=== PATIENT | male | born 1945 | race Caucasian/White ===

== ENCOUNTER 2020-03-21 14:48 | Inpatient (IN) ==
[2020-03-21] MEDS ORDERED: *HR* OxyCODONE Immed Rel 5 MG TABLET PO PRN ×2 (15:45→17:01)
[2020-03-21] MEDS: carvediloL 6.25 MG TABLET PO SCH (16:54)
[2020-03-21] MEDS: DilTIAZem CD (24hr) 120 MG CAP.ER.24H PO SCH (16:54)
[2020-03-21] MEDS ORDERED: *HR* OxyCODONE/APAP 5/325 TABLET PO PRN (17:00)
[2020-03-21] MEDS ORDERED: Lactulose Oral Soln 20 GM/30 ML UDC PO PRN (17:01)
[2020-03-21] MEDS: polyethylene glycoL 3350 17 GM POWD.PACK PO SCH (17:12)
[2020-03-21] MEDS ORDERED: NON-FORMULARY MEDICATION 1 EACH EACH (Garlic 1,000 MG) PO SCH (18:00)
[2020-03-21] MEDS ORDERED: NON-FORMULARY MEDICATION 1 EACH EACH (Omega-3/Dha/Epa/Fish Oil [Cvs Fish Oil 1,000 Mg Soft PO SCH (18:00)
[2020-03-21] MEDS: Sennosides/Docusate Sodium TABLET PO SCH (19:51)
[2020-03-21] MEDS ORDERED: GLUCOSAMINE HCL 1500 MG PO SCH (21:00)
[2020-03-22 05:38] LABS: Basophils % 0.2 %; Eosinophils # 0.1 K/mcL (0.0-0.6); Eosinophils % 0.5 %; Hematocrit 25.5 % (37.5-50.1); Hemoglobin 8.5 g/dL (12.9-16.9); Immature Granulocytes % 3.3 % (0-4); Lymphocytes # 1.1 K/mcL (0.6-4.6); Lymphocytes % 7.8 %; Mean Corpuscular HGB Conc 33.3 g/dL (31.6-35.5); Mean Platelet Volume 11.1 fL (9.4-12.4); Monocytes # 3.8 K/mcL (0.0-1.3); Monocytes % 27.4 %; Neutrophils # 8.4 K/mcL (1.6-8.9); Platelet Count 119 K/mcL (140-400); Red Cell Distribution Width 12.7 % (11.5-14.5); Segmented Neutrophils % 60.8 %; White Blood Count 13.8 K/mcL (4.3-11.1)
[2020-03-22 05:54] LABS: BUN/Creatinine Ratio 27 (6-26); Blood Urea Nitrogen 21 mg/dL (8-23); Calcium 8.2 mg/dL (8.6-10.3); Carbon Dioxide 27 mEq/L (23-29); Chloride 99 mEq/L (98-107); Glucose 136 mg/dL (70-105); Osmolality,Calculated 279 (280-300); Potassium 4.6 mEq/L (3.5-5.1); Sodium 132 mEq/L (136-145); eGFR For African Americans > 60 (> 60); eGFR For Non-African Americans > 60 (> 60)
[2020-03-22] MEDS: *HR* Enoxaparin 40 MG/0.4 ML SYRINGE SQ SCH (06:09)
[2020-03-22 06:17] LABS: Platelet Estimate Decreased (Normal)
[2020-03-22 06:18] LABS: Macrocytosis Present (Not Present); Reactive Lymphocytes Present (Not Present)
[2020-03-22] MEDS: polyethylene glycoL 3350 17 GM POWD.PACK PO SCH (07:59)
[2020-03-22] MEDS: Cyanocobalamin (B-12) 1,000 MCG TABLET PO SCH (07:59)
[2020-03-22] MEDS: lisinopriL 20 MG TABLET PO SCH (07:59)
[2020-03-22] MEDS: carvediloL 6.25 MG TABLET PO SCH ×2 (07:59→17:11)
[2020-03-22] MEDS: Loratadine 10 MG TABLET PO SCH (07:59)
[2020-03-22] MEDS: allopurinoL 300 MG TABLET PO SCH (07:59)
[2020-03-22] MEDS: Sennosides/Docusate Sodium TABLET PO SCH ×2 (07:59→20:20)
[2020-03-22] MEDS ORDERED: Aspirin 325 MG TABLET PO SCH (09:00)
[2020-03-22] MEDS: *HR* OxyCODONE Immed Rel 5 MG TABLET PO PRN ×2 (17:10→20:20)
[2020-03-22] MEDS: DilTIAZem CD (24hr) 120 MG CAP.ER.24H PO SCH (17:11)
[2020-03-23] MEDS: *HR* OxyCODONE/APAP 7.5/325 TABLET PO PRN ×3 (02:29→22:45)
[2020-03-23] MEDS: *HR* Enoxaparin 40 MG/0.4 ML SYRINGE SQ SCH (05:16)
[2020-03-23 05:19] LABS: Bilirubin,Urine Negative (Negative); Blood,Urine Trace-intact (Negative); Clarity,Urine Clear (Clear); Color,Urine Yellow (Yellow); Glucose,Urine (UA) Normal (Normal); Ketones,Urine Negative (Negative); Leukocyte Esterase,Urine Negative (Negative); Nitrite,Urine Negative (Negative); PH,Urine 5.5 pH Units (5.0-8.0); Protein,Urine Negative (Neg-Trace); Specific Gravity,Urine 1.025 (1.010-1.025); Urobilinogen,Urine Normal (Normal)
[2020-03-23 05:23] LABS: Bacteria,Urine None Seen per hpf (None-Few); RBC,Urine 0-3 per hpf (0-3); Squamous Epithelial Cell,Urine Few per lpf (None-Few); Transitional Epi Cells,Urine Few per hpf (None-Few); WBC,Urine 0-3 per hpf (0-3)
[2020-03-23 06:24] LABS: Basophils % 0.2 %; Eosinophils # 0.1 K/mcL (0.0-0.6); Eosinophils % 0.6 %; Hematocrit 25.2 % (37.5-50.1); Hemoglobin 8.4 g/dL (12.9-16.9); Immature Granulocytes % 4.6 % (0-4); Lymphocytes # 1.1 K/mcL (0.6-4.6); Lymphocytes % 7.9 %; Mean Corpuscular HGB Conc 33.3 g/dL (31.6-35.5); Mean Corpuscular Hemoglobin 34.1 pg (28.0-33.3); Mean Corpuscular Volume 102.4 fL (83.0-100.0); Mean Platelet Volume 10.7 fL (9.4-12.4); Monocytes # 3.7 K/mcL (0.0-1.3); Neutrophils # 8.2 K/mcL (1.6-8.9); Platelet Count 140 K/mcL (140-400); Red Blood Count 2.46 M/mcL (4.19-5.50); Red Cell Distribution Width 12.8 % (11.5-14.5); Segmented Neutrophils % 59.7 %; White Blood Count 13.7 K/mcL (4.3-11.1)
[2020-03-23 06:36] LABS: Platelet Estimate Normal (Normal)
[2020-03-23 06:37] LABS: Macrocytosis Present (Not Present); Polychromasia 1+ (Not Present)
[2020-03-23 06:38] LABS: Reactive Lymphocytes Present (Not Present)
[2020-03-23 07:17] LABS: BUN/Creatinine Ratio 35 (6-26); Blood Urea Nitrogen 34 mg/dL (8-23); Calcium 8.2 mg/dL (8.6-10.3); Carbon Dioxide 26 mEq/L (23-29); Chloride 99 mEq/L (98-107); Glucose 149 mg/dL (70-105); Osmolality,Calculated 284 (280-300); Potassium 4.3 mEq/L (3.5-5.1); Sodium 132 mEq/L (136-145); eGFR For African Americans > 60 (> 60); eGFR For Non-African Americans > 60 (> 60)
[2020-03-23] MEDS: Loratadine 10 MG TABLET PO SCH (08:29)
[2020-03-23] MEDS: lisinopriL 20 MG TABLET PO SCH (08:29)
[2020-03-23] MEDS: carvediloL 6.25 MG TABLET PO SCH ×2 (08:30→17:42)
[2020-03-23] MEDS: Aspirin 81 MG TAB.CHEW PO SCH (08:30)
[2020-03-23] MEDS: allopurinoL 300 MG TABLET PO SCH (08:30)
[2020-03-23] MEDS: Sennosides/Docusate Sodium TABLET PO SCH ×2 (08:30→22:45)
[2020-03-23] MEDS: polyethylene glycoL 3350 17 GM POWD.PACK PO SCH (08:30)
[2020-03-23] MEDS: Cyanocobalamin (B-12) 1,000 MCG TABLET PO SCH (08:30)
[2020-03-23] MEDS: DilTIAZem CD (24hr) 120 MG CAP.ER.24H PO SCH (17:42)
[2020-03-23 19:19] LABS: Estimated Average Glucose 114 mg/dl
[2020-03-24] MEDS: *HR* Enoxaparin 40 MG/0.4 ML SYRINGE SQ SCH (06:24)
[2020-03-24] MEDS: Sennosides/Docusate Sodium TABLET PO SCH ×2 (08:14→22:32)
[2020-03-24] MEDS: carvediloL 6.25 MG TABLET PO SCH ×2 (08:14→17:07)
[2020-03-24] MEDS: Cyanocobalamin (B-12) 1,000 MCG TABLET PO SCH (08:14)
[2020-03-24] MEDS: Aspirin 81 MG TAB.CHEW PO SCH (08:14)
[2020-03-24] MEDS: allopurinoL 300 MG TABLET PO SCH (08:14)
[2020-03-24] MEDS: Loratadine 10 MG TABLET PO SCH (08:14)
[2020-03-24] MEDS: polyethylene glycoL 3350 17 GM POWD.PACK PO SCH (08:14)
[2020-03-24] MEDS: lisinopriL 20 MG TABLET PO SCH (08:14)
[2020-03-24] MEDS: DilTIAZem CD (24hr) 120 MG CAP.ER.24H PO SCH ×2 (17:07→18:12)
[2020-03-24] MEDS: *HR* OxyCODONE/APAP 7.5/325 TABLET PO PRN (22:32)
[2020-03-25] MEDS: *HR* Enoxaparin 40 MG/0.4 ML SYRINGE SQ SCH (05:17)
[2020-03-25 06:22] LABS: Basophils # 0.1 K/mcL (0.0-0.2); Basophils % 0.4 %; Eosinophils # 0.1 K/mcL (0.0-0.6); Eosinophils % 0.8 %; Hematocrit 24.1 % (37.5-50.1); Hemoglobin 7.8 g/dL (12.9-16.9); Immature Granulocytes % 6.3 % (0-4); Lymphocytes % 9.3 %; Mean Corpuscular HGB Conc 32.4 g/dL (31.6-35.5); Mean Corpuscular Hemoglobin 33.3 pg (28.0-33.3); Mean Platelet Volume 11.2 fL (9.4-12.4); Monocytes # 2.9 K/mcL (0.0-1.3); Monocytes % 23.3 %; Neutrophils # 7.4 K/mcL (1.6-8.9); Platelet Count 216 K/mcL (140-400); Red Blood Count 2.34 M/mcL (4.19-5.50); Red Cell Distribution Width 12.7 % (11.5-14.5); Segmented Neutrophils % 59.9 %; White Blood Count 12.3 K/mcL (4.3-11.1)
[2020-03-25 06:34] LABS: Lymphocytes # 1.1 K/mcL (0.6-4.6)
[2020-03-25] MEDS: Loratadine 10 MG TABLET PO SCH (07:51)
[2020-03-25] MEDS: carvediloL 6.25 MG TABLET PO SCH ×2 (07:51→16:08)
[2020-03-25] MEDS: Aspirin 81 MG TAB.CHEW PO SCH (07:51)
[2020-03-25] MEDS: allopurinoL 300 MG TABLET PO SCH (07:51)
[2020-03-25] MEDS: polyethylene glycoL 3350 17 GM POWD.PACK PO SCH (07:51)
[2020-03-25] MEDS: Cyanocobalamin (B-12) 1,000 MCG TABLET PO SCH (07:51)
[2020-03-25] MEDS: Sennosides/Docusate Sodium TABLET PO SCH ×2 (07:52→19:55)
[2020-03-25] MEDS: DilTIAZem CD (24hr) 120 MG CAP.ER.24H PO SCH (16:08)
[2020-03-25] MEDS: *HR* OxyCODONE/APAP 7.5/325 TABLET PO PRN (19:55)
[2020-03-26] MEDS: *HR* OxyCODONE/APAP 7.5/325 TABLET PO PRN ×2 (05:01→22:14)
[2020-03-26] MEDS: *HR* Enoxaparin 40 MG/0.4 ML SYRINGE SQ SCH (05:02)
[2020-03-26 06:27] LABS: Basophils % 0.2 %; Eosinophils # 0.1 K/mcL (0.0-0.6); Eosinophils % 0.8 %; Hemoglobin 7.1 g/dL (12.9-16.9); Immature Granulocytes % 9.2 % (0-4); Lymphocytes % 9.4 %; Mean Corpuscular HGB Conc 32.3 g/dL (31.6-35.5); Mean Corpuscular Hemoglobin 33.5 pg (28.0-33.3); Mean Corpuscular Volume 103.8 fL (83.0-100.0); Mean Platelet Volume 10.7 fL (9.4-12.4); Monocytes # 2.6 K/mcL (0.0-1.3); Monocytes % 24.6 %; Neutrophils # 5.9 K/mcL (1.6-8.9); Platelet Count 237 K/mcL (140-400); Red Blood Count 2.12 M/mcL (4.19-5.50); Red Cell Distribution Width 12.8 % (11.5-14.5); Segmented Neutrophils % 55.8 %; White Blood Count 10.6 K/mcL (4.3-11.1)
[2020-03-26] MEDS: carvediloL 6.25 MG TABLET PO SCH ×2 (07:50→17:57)
[2020-03-26] MEDS: allopurinoL 300 MG TABLET PO SCH (07:50)
[2020-03-26] MEDS: polyethylene glycoL 3350 17 GM POWD.PACK PO SCH (07:50)
[2020-03-26] MEDS: Sennosides/Docusate Sodium TABLET PO SCH ×2 (07:50→19:52)
[2020-03-26] MEDS: Cyanocobalamin (B-12) 1,000 MCG TABLET PO SCH (07:50)
[2020-03-26] MEDS: Aspirin 81 MG TAB.CHEW PO SCH (07:50)
[2020-03-26] MEDS: Loratadine 10 MG TABLET PO SCH (07:51)
[2020-03-26] MEDS: DilTIAZem CD (24hr) 120 MG CAP.ER.24H PO SCH (17:57)
[2020-03-26 18:11] LABS: % Iron Saturation 10 % (20-55); Iron 28 mcg/dL (65-175); Transferrin 199 mg/dL (203-362)
[2020-03-26 18:38] LABS: Folate > 22.3 ng/mL (3.0-16.0); Vitamin B12 347 pg/mL (250-1100)
[2020-03-27 05:44] LABS: Basophils % 0.3 %; Eosinophils # 0.1 K/mcL (0.0-0.6); Eosinophils % 0.7 %; Hematocrit 24.9 % (37.5-50.1); Hemoglobin 7.9 g/dL (12.9-16.9); Immature Granulocytes % 6.9 % (0-4); Lymphocytes # 1.2 K/mcL (0.6-4.6); Lymphocytes % 8.8 %; Mean Corpuscular HGB Conc 31.7 g/dL (31.6-35.5); Mean Corpuscular Hemoglobin 32.6 pg (28.0-33.3); Mean Corpuscular Volume 102.9 fL (83.0-100.0); Mean Platelet Volume 10.8 fL (9.4-12.4); Monocytes # 3.2 K/mcL (0.0-1.3); Platelet Count 266 K/mcL (140-400); Red Blood Count 2.42 M/mcL (4.19-5.50); Red Cell Distribution Width 13.7 % (11.5-14.5); Segmented Neutrophils % 59.3 %; White Blood Count 13.4 K/mcL (4.3-11.1)
[2020-03-27 05:46] LABS: BUN/Creatinine Ratio 37 (6-26); Blood Urea Nitrogen 31 mg/dL (8-23); Calcium 8.3 mg/dL (8.6-10.3); Carbon Dioxide 29 mEq/L (23-29); Chloride 101 mEq/L (98-107); Glucose 113 mg/dL (70-105); Osmolality,Calculated 285 (280-300); Potassium 4.8 mEq/L (3.5-5.1); Sodium 134 mEq/L (136-145); eGFR For African Americans > 60 (> 60); eGFR For Non-African Americans > 60 (> 60)
[2020-03-27 06:17] LABS: Platelet Estimate Normal (Normal)
[2020-03-27 06:18] LABS: Macrocytosis Present (Not Present)
[2020-03-27 06:19] LABS: Large Platelets Present (Not Present); Polychromasia 1+ (Not Present)
[2020-03-27] MEDS: *HR* OxyCODONE/APAP 7.5/325 TABLET PO PRN ×2 (06:19→20:04)
[2020-03-27] MEDS: *HR* Enoxaparin 40 MG/0.4 ML SYRINGE SQ SCH (06:19)
[2020-03-27 06:20] LABS: Basophilic Stippling 1+ (Not Present)
[2020-03-27] MEDS: Sennosides/Docusate Sodium TABLET PO SCH ×2 (07:49→20:04)
[2020-03-27] MEDS: Loratadine 10 MG TABLET PO SCH (07:49)
[2020-03-27] MEDS: Aspirin 81 MG TAB.CHEW PO SCH (07:49)
[2020-03-27] MEDS: Cyanocobalamin (B-12) 1,000 MCG TABLET PO SCH (07:49)
[2020-03-27] MEDS: allopurinoL 300 MG TABLET PO SCH (07:49)
[2020-03-27] MEDS: polyethylene glycoL 3350 17 GM POWD.PACK PO SCH (07:49)
[2020-03-27] MEDS: carvediloL 6.25 MG TABLET PO SCH ×2 (07:49→17:12)
[2020-03-27] MEDS: Ascorbic Acid 500 MG TABLET PO SCH ×2 (09:47→17:11)
[2020-03-27] MEDS: DilTIAZem CD (24hr) 120 MG CAP.ER.24H PO SCH (17:12)
[2020-03-28] MEDS: *HR* OxyCODONE/APAP 7.5/325 TABLET PO PRN (04:51)
[2020-03-28] MEDS: *HR* Enoxaparin 40 MG/0.4 ML SYRINGE SQ SCH (04:52)
[2020-03-28] MEDS: carvediloL 6.25 MG TABLET PO SCH ×2 (07:51→17:41)
[2020-03-28] MEDS: Sennosides/Docusate Sodium TABLET PO SCH ×2 (07:51→20:39)
[2020-03-28] MEDS: Ascorbic Acid 500 MG TABLET PO SCH ×2 (07:51→17:42)
[2020-03-28] MEDS: allopurinoL 300 MG TABLET PO SCH (07:51)
[2020-03-28] MEDS: Loratadine 10 MG TABLET PO SCH (07:51)
[2020-03-28] MEDS: polyethylene glycoL 3350 17 GM POWD.PACK PO SCH (07:51)
[2020-03-28] MEDS: Cyanocobalamin (B-12) 1,000 MCG TABLET PO SCH (07:51)
[2020-03-28] MEDS: Aspirin 81 MG TAB.CHEW PO SCH (07:51)
[2020-03-28] MEDS: DilTIAZem CD (24hr) 120 MG CAP.ER.24H PO SCH (17:41)
[2020-03-28] MEDS: *HR* OxyCODONE Immed Rel 5 MG TABLET PO PRN (17:41)
[2020-03-29] MEDS: *HR* OxyCODONE/APAP 7.5/325 TABLET PO PRN ×3 (06:08→21:46)
[2020-03-29] MEDS: *HR* Enoxaparin 40 MG/0.4 ML SYRINGE SQ SCH (06:09)
[2020-03-29] MEDS: Loratadine 10 MG TABLET PO SCH (08:33)
[2020-03-29] MEDS: allopurinoL 300 MG TABLET PO SCH (08:34)
[2020-03-29] MEDS: Sennosides/Docusate Sodium TABLET PO SCH ×2 (08:34→19:57)
[2020-03-29] MEDS: Aspirin 81 MG TAB.CHEW PO SCH (08:34)
[2020-03-29] MEDS: Cyanocobalamin (B-12) 1,000 MCG TABLET PO SCH (08:34)
[2020-03-29] MEDS: Ascorbic Acid 500 MG TABLET PO SCH ×2 (08:34→17:32)
[2020-03-29] MEDS: carvediloL 6.25 MG TABLET PO SCH ×2 (08:34→17:32)
[2020-03-29] MEDS: polyethylene glycoL 3350 17 GM POWD.PACK PO SCH (08:34)
[2020-03-29] MEDS: DilTIAZem CD (24hr) 120 MG CAP.ER.24H PO SCH (17:32)
[2020-03-30] MEDS: *HR* OxyCODONE/APAP 7.5/325 TABLET PO PRN ×3 (05:35→18:21)
[2020-03-30] MEDS: *HR* Enoxaparin 40 MG/0.4 ML SYRINGE SQ SCH (05:35)
[2020-03-30] MEDS: Sennosides/Docusate Sodium TABLET PO SCH (08:26)
[2020-03-30] MEDS: Loratadine 10 MG TABLET PO SCH (08:26)
[2020-03-30] MEDS: carvediloL 6.25 MG TABLET PO SCH ×2 (08:27→17:37)
[2020-03-30] MEDS: Ascorbic Acid 500 MG TABLET PO SCH ×2 (08:27→17:37)
[2020-03-30] MEDS: allopurinoL 300 MG TABLET PO SCH (08:27)
[2020-03-30] MEDS: Aspirin 81 MG TAB.CHEW PO SCH (08:27)
[2020-03-30] MEDS: polyethylene glycoL 3350 17 GM POWD.PACK PO SCH (08:27)
[2020-03-30] MEDS: Cyanocobalamin (B-12) 1,000 MCG TABLET PO SCH (08:27)
[2020-03-30] MEDS ORDERED: Sennosides/Docusate Sodium TABLET PO PRN (08:57)
[2020-03-30] MEDS: DilTIAZem CD (24hr) 120 MG CAP.ER.24H PO SCH (17:37)
[2020-03-31] MEDS: *HR* OxyCODONE/APAP 7.5/325 TABLET PO PRN ×3 (05:35→21:45)
[2020-03-31] MEDS: *HR* Enoxaparin 40 MG/0.4 ML SYRINGE SQ SCH (05:36)
[2020-03-31] MEDS: carvediloL 6.25 MG TABLET PO SCH ×2 (09:20→17:35)
[2020-03-31] MEDS: Aspirin 81 MG TAB.CHEW PO SCH (09:20)
[2020-03-31] MEDS: allopurinoL 300 MG TABLET PO SCH (09:20)
[2020-03-31] MEDS: Ascorbic Acid 500 MG TABLET PO SCH ×2 (09:20→17:35)
[2020-03-31] MEDS: Cyanocobalamin (B-12) 1,000 MCG TABLET PO SCH (09:20)
[2020-03-31] MEDS: Loratadine 10 MG TABLET PO SCH (09:20)
[2020-03-31] MEDS: polyethylene glycoL 3350 17 GM POWD.PACK PO SCH (09:21)
[2020-03-31] MEDS: DilTIAZem CD (24hr) 120 MG CAP.ER.24H PO SCH (17:49)
[2020-04-01] MEDS: *HR* Enoxaparin 40 MG/0.4 ML SYRINGE SQ SCH (04:57)
[2020-04-01] MEDS: polyethylene glycoL 3350 17 GM POWD.PACK PO SCH (08:35)
[2020-04-01] MEDS: Ascorbic Acid 500 MG TABLET PO SCH ×2 (08:35→17:01)
[2020-04-01] MEDS: Aspirin 81 MG TAB.CHEW PO SCH (08:35)
[2020-04-01] MEDS: Loratadine 10 MG TABLET PO SCH (08:35)
[2020-04-01] MEDS: allopurinoL 300 MG TABLET PO SCH (08:35)
[2020-04-01] MEDS: Cyanocobalamin (B-12) 1,000 MCG TABLET PO SCH (08:36)
[2020-04-01] MEDS: carvediloL 6.25 MG TABLET PO SCH ×2 (08:36→17:01)
[2020-04-01] MEDS: *HR* OxyCODONE/APAP 7.5/325 TABLET PO PRN ×3 (08:39→22:06)
[2020-04-01] MEDS: DilTIAZem CD (24hr) 120 MG CAP.ER.24H PO SCH (17:01)
[2020-04-02 05:48] LABS: Hematocrit 26.9 % (37.5-50.1); Hemoglobin 8.6 g/dL (12.9-16.9); Mean Corpuscular Hemoglobin 33.2 pg (28.0-33.3); Mean Corpuscular Volume 103.9 fL (83.0-100.0); Mean Platelet Volume 10.2 fL (9.4-12.4); Platelet Count 318 K/mcL (140-400); Red Blood Count 2.59 M/mcL (4.19-5.50); Red Cell Distribution Width 13.7 % (11.5-14.5); White Blood Count 8.3 K/mcL (4.3-11.1)
[2020-04-02] MEDS: *HR* OxyCODONE/APAP 7.5/325 TABLET PO PRN ×3 (05:56→20:38)
[2020-04-02] MEDS: *HR* Enoxaparin 40 MG/0.4 ML SYRINGE SQ SCH (06:00)
[2020-04-02 06:03] LABS: BUN/Creatinine Ratio 21 (6-26); Blood Urea Nitrogen 15 mg/dL (8-23); Calcium 8.9 mg/dL (8.6-10.3); Carbon Dioxide 28 mEq/L (23-29); Chloride 103 mEq/L (98-107); Glucose 122 mg/dL (70-105); Magnesium 2.3 mg/dL (1.6-2.6); Osmolality,Calculated 288 (280-300); Potassium 4.2 mEq/L (3.5-5.1); Sodium 138 mEq/L (136-145); eGFR For African Americans > 60 (> 60); eGFR For Non-African Americans > 60 (> 60)
[2020-04-02] MEDS: allopurinoL 300 MG TABLET PO SCH (08:06)
[2020-04-02] MEDS: polyethylene glycoL 3350 17 GM POWD.PACK PO SCH (08:06)
[2020-04-02] MEDS: Loratadine 10 MG TABLET PO SCH (08:06)
[2020-04-02] MEDS: Cyanocobalamin (B-12) 1,000 MCG TABLET PO SCH (08:06)
[2020-04-02] MEDS: Ascorbic Acid 500 MG TABLET PO SCH ×2 (08:07→17:10)
[2020-04-02] MEDS: Aspirin 81 MG TAB.CHEW PO SCH (08:07)
[2020-04-02] MEDS: carvediloL 6.25 MG TABLET PO SCH ×2 (08:07→17:10)
[2020-04-02] MEDS: DilTIAZem CD (24hr) 120 MG CAP.ER.24H PO SCH (17:10)
[2020-04-03] MEDS: *HR* OxyCODONE/APAP 7.5/325 TABLET PO PRN ×3 (05:59→21:45)
[2020-04-03] MEDS: *HR* Enoxaparin 40 MG/0.4 ML SYRINGE SQ SCH (06:00)
[2020-04-03] MEDS: carvediloL 6.25 MG TABLET PO SCH ×2 (08:25→17:21)
[2020-04-03] MEDS: Ascorbic Acid 500 MG TABLET PO SCH ×2 (08:25→17:21)
[2020-04-03] MEDS: Aspirin 81 MG TAB.CHEW PO SCH (08:25)
[2020-04-03] MEDS: Cyanocobalamin (B-12) 1,000 MCG TABLET PO SCH (08:25)
[2020-04-03] MEDS: polyethylene glycoL 3350 17 GM POWD.PACK PO SCH (08:26)
[2020-04-03] MEDS: allopurinoL 300 MG TABLET PO SCH (08:26)
[2020-04-03] MEDS: Loratadine 10 MG TABLET PO SCH (08:39)
[2020-04-03] MEDS: DilTIAZem CD (24hr) 120 MG CAP.ER.24H PO SCH (17:21)
[2020-04-04] MEDS: *HR* OxyCODONE/APAP 7.5/325 TABLET PO PRN ×3 (03:50→21:06)
[2020-04-04] MEDS: *HR* Enoxaparin 40 MG/0.4 ML SYRINGE SQ SCH (06:04)
[2020-04-04] MEDS: Loratadine 10 MG TABLET PO SCH (08:52)
[2020-04-04] MEDS: polyethylene glycoL 3350 17 GM POWD.PACK PO SCH (08:52)
[2020-04-04] MEDS: carvediloL 6.25 MG TABLET PO SCH ×2 (08:52→16:51)
[2020-04-04] MEDS: Ascorbic Acid 500 MG TABLET PO SCH ×2 (08:52→16:51)
[2020-04-04] MEDS: allopurinoL 300 MG TABLET PO SCH (08:52)
[2020-04-04] MEDS: Cyanocobalamin (B-12) 1,000 MCG TABLET PO SCH (08:52)
[2020-04-04] MEDS: Aspirin 81 MG TAB.CHEW PO SCH (08:52)
[2020-04-04] MEDS: Doxycycline 100 MG CAPSULE PO SCH ×2 (11:48→21:07)
[2020-04-04] MEDS: DilTIAZem CD (24hr) 120 MG CAP.ER.24H PO SCH (16:51)
[2020-04-05] MEDS: *HR* Enoxaparin 40 MG/0.4 ML SYRINGE SQ SCH (05:40)
[2020-04-05] MEDS: *HR* OxyCODONE/APAP 7.5/325 TABLET PO PRN ×2 (05:40→16:01)
[2020-04-05] MEDS: polyethylene glycoL 3350 17 GM POWD.PACK PO SCH (08:11)
[2020-04-05] MEDS: Loratadine 10 MG TABLET PO SCH (08:11)
[2020-04-05] MEDS: carvediloL 6.25 MG TABLET PO SCH ×2 (08:12→16:29)
[2020-04-05] MEDS: Ascorbic Acid 500 MG TABLET PO SCH ×2 (08:12→16:29)
[2020-04-05] MEDS: Aspirin 81 MG TAB.CHEW PO SCH (08:12)
[2020-04-05] MEDS: Doxycycline 100 MG CAPSULE PO SCH ×2 (08:12→19:52)
[2020-04-05] MEDS: Cyanocobalamin (B-12) 1,000 MCG TABLET PO SCH (08:12)
[2020-04-05] MEDS: allopurinoL 300 MG TABLET PO SCH (08:12)
[2020-04-05] MEDS: DilTIAZem CD (24hr) 120 MG CAP.ER.24H PO SCH (16:29)
[2020-04-06 05:35] LABS: Basophils % 0.3 %; Eosinophils # 0.1 K/mcL (0.0-0.6); Eosinophils % 0.8 %; Hematocrit 28.6 % (37.5-50.1); Hemoglobin 8.9 g/dL (12.9-16.9); Immature Granulocytes % 4.2 % (0-4); Mean Corpuscular HGB Conc 31.1 g/dL (31.6-35.5); Mean Corpuscular Hemoglobin 31.9 pg (28.0-33.3); Mean Corpuscular Volume 102.5 fL (83.0-100.0); Mean Platelet Volume 10.6 fL (9.4-12.4); Monocytes # 2.1 K/mcL (0.0-1.3); Monocytes % 26.6 %; Neutrophils # 4.3 K/mcL (1.6-8.9); Platelet Count 280 K/mcL (140-400); Red Blood Count 2.79 M/mcL (4.19-5.50); Red Cell Distribution Width 14.2 % (11.5-14.5); Segmented Neutrophils % 55.1 %; White Blood Count 7.9 K/mcL (4.3-11.1)
[2020-04-06] MEDS: *HR* Enoxaparin 40 MG/0.4 ML SYRINGE SQ SCH (05:39)
[2020-04-06 05:53] LABS: BUN/Creatinine Ratio 22 (6-26); Blood Urea Nitrogen 15 mg/dL (8-23); Calcium 8.7 mg/dL (8.6-10.3); Carbon Dioxide 28 mEq/L (23-29); Chloride 102 mEq/L (98-107); Glucose 121 mg/dL (70-105); Osmolality,Calculated 288 (280-300); Potassium 3.8 mEq/L (3.5-5.1); Sodium 138 mEq/L (136-145); eGFR For African Americans > 60 (> 60); eGFR For Non-African Americans > 60 (> 60)
[2020-04-06] MEDS: polyethylene glycoL 3350 17 GM POWD.PACK PO SCH (08:21)
[2020-04-06] MEDS: allopurinoL 300 MG TABLET PO SCH (08:22)
[2020-04-06] MEDS: Loratadine 10 MG TABLET PO SCH (08:22)
[2020-04-06] MEDS: Aspirin 81 MG TAB.CHEW PO SCH (08:22)
[2020-04-06] MEDS: Cyanocobalamin (B-12) 1,000 MCG TABLET PO SCH (08:22)
[2020-04-06] MEDS: Doxycycline 100 MG CAPSULE PO SCH ×2 (08:22→20:46)
[2020-04-06] MEDS: carvediloL 6.25 MG TABLET PO SCH ×2 (08:22→17:16)
[2020-04-06] MEDS: Ascorbic Acid 500 MG TABLET PO SCH ×2 (08:22→16:25)
[2020-04-06] MEDS ORDERED: *HR* OxyCODONE Immed Rel 5 MG TABLET PO PRN (09:03)
[2020-04-06] MEDS: *HR* OxyCODONE Immed Rel 5 MG TABLET PO PRN ×3 (09:33→21:42)
[2020-04-06] MEDS: Furosemide 20 MG TABLET PO SCH ×2 (10:55→17:16)
[2020-04-06] MEDS: DilTIAZem CD (24hr) 120 MG CAP.ER.24H PO SCH (17:16)
[2020-04-07] MEDS: *HR* Enoxaparin 40 MG/0.4 ML SYRINGE SQ SCH (05:49)
[2020-04-07] MEDS: *HR* OxyCODONE Immed Rel 5 MG TABLET PO PRN ×2 (06:11→12:51)
[2020-04-07 07:47] VITALS: BP 143/69
[2020-04-07] MEDS: Doxycycline 100 MG CAPSULE PO SCH (08:32)
[2020-04-07] MEDS: carvediloL 6.25 MG TABLET PO SCH (08:32)
[2020-04-07] MEDS: Aspirin 81 MG TAB.CHEW PO SCH (08:32)
[2020-04-07] MEDS: Furosemide 20 MG TABLET PO SCH (08:32)
[2020-04-07] MEDS: Ascorbic Acid 500 MG TABLET PO SCH (08:32)
[2020-04-07] MEDS: allopurinoL 300 MG TABLET PO SCH (08:32)
[2020-04-07] MEDS: Cyanocobalamin (B-12) 1,000 MCG TABLET PO SCH (08:32)
[2020-04-07] MEDS: Loratadine 10 MG TABLET PO SCH (08:35)
[2020-04-07] MEDS: polyethylene glycoL 3350 17 GM POWD.PACK PO SCH (08:35)
== END 2020-04-07 13:40 | disposition home or self-care (01) | DRG 559 ==
LOC: INPGRE 14:48
PROVIDERS: ADMIT Family Medicine; ATTEND Family Medicine